=== PATIENT | female | born 1960 | race African-American/Black ===

== ENCOUNTER → 2017-06-10 | Outpatient (CLI) | payer OTHER, BC ==
[~2017-06-10] MED LIST: AIRBORNE TABLE1 EAC1 PO; ATIVAN0.5 MG PO; BAYER BACK & B1 EACH PO; BUSPAR15 MG PO; ESTRACE42.5 GM VG; EXCEDRIN MIGRA1 EAC3 PO; FISH OIL 1,2001 EAC3 PO; HYOSCYAMINE0.375 M4 PO; LIBRAX, CLI1 CAPSULE PO; LIDODERM 5% P1 PATCH TD; LIPOSENE PO; LUMIGAN 0.50 DROP/22 BOTH EYES; NABUMETONE500 MG PO; NEXIUM40 MG PO; PRISTIQ100 MG PO; PRISTIQ50 MG PO; REMERON45 MG PO; ROBAXIN500 MG PO; SEROQUEL50 MG PO; SPIRIVA1 INHALATI IH; TOPAMAX100 MG PO; TYLENOL EXTRA500 MG PO; VAGIFEM10 MCG VG; VENTOLIN HFA18 GM IH; VITAMIN B-6100 MG PO; VITAMIN D31000 UNIT PO; VOLTAREN 1% GE100 GM TP; ZYRTEC10 M3 PO
== END | disposition home or self-care (01) ==
LOC: NUC 07:48
DX: E05.00 Thyrotoxicosis with diffuse goiter without thyrotoxic crisis or storm (principal)
CPT/HCPCS: 78014; 78999; A9516

== ENCOUNTER 2017-06-12 10:23 | Emergency (ER) | payer OTHER, BC ==
[~2017-06-12] VITALS: Ht 170.2 cm; Wt 113.5 kg
[2017-06-12 11:22] LABS: D-DIMER ELISA < 150.00 ng/mLDDU (<230)
[2017-06-12 11:24] LABS: HEMATOCRIT 37.6 % (36.0-46.0); HEMOGLOBIN 11.5 G/DL (11.9-15.5); MCH 22.9 PG (29.0-34.0); MCHC 30.6 G/DL (30.0-36.0); MCV 74.9 FL (83-99); PLATELET COUNT 313 K/uL (156-360); RBC DIS.WIDTH-CV 16.5 % (11.8-14.6); RBC DIS.WIDTH-SD 44.2 % (39-53); RED BLOOD COUNT 5.02 M/uL (3.80-5.20)
[2017-06-12 11:26] LABS: CHLORIDE 104 mEq/L (99-109); POTASSIUM 4.6 mEq/L (3.7-5.4); SODIUM 132 mEq/L (136-147)
[2017-06-12 11:28] LABS: GLUCOSE 100 mg/dL (70-99)
[2017-06-12 11:32] LABS: CREATININE 0.8 mg/dL (0.6-1.3); GFR ESTIMATE (CALCULATED) > 59 mL/min/
[2017-06-12 11:33] LABS: UREA NITROGEN (BUN) 11 mg/dL (9-23)
[2017-06-12 11:34] LABS: TROP-I INTERPRETATION NEGATIVE; TROPONIN-I < 0.01 ng/mL (0.0-0.30)
[2017-06-12 15:55] LABS: TROP-I INTERPRETATION NEGATIVE; TROPONIN-I < 0.01 ng/mL (0.0-0.30)
[2017-06-12 17:20] VITALS: BP 174/83
== END 2017-06-12 17:21 | disposition home or self-care (01) ==
LOC: EME 10:23
PROVIDERS: Emergency Medicine
DX: R07.9 Chest pain, unspecified (principal); R06.02 Shortness of breath; R19.7 Diarrhea, unspecified; R03.0 Elevated blood-pressure reading, without diagnosis of hypertension; F17.200 Nicotine dependence, unspecified, uncomplicated
CPT/HCPCS: 71046; 80048; 84484; 85027; 85379; 93005; 99281; 99285